=== PATIENT | female | born 1985 | race Caucasian/White ===

== ENCOUNTER 2017-04-25 16:53 | Emergency (ER) | payer MEDICAID ==
[~2017-04-25 16:53] MED LIST: ESTR2TAB PO; FLUT50SP EACH NARE; LORA-361 PO; MONT10TA4 PO
[2017-04-25 16:55] VITALS: BP 127/74; PULSE 90; RESP 14; TEMP 98.2; O2SAT 100
[2017-04-25] MEDS ORDERED: zyrtec (17:06)
[2017-04-25] MEDS ORDERED: SODIUM CHLORIDE 0.9% FLUSH 10 ML FLUSH IV FLUSH PRN (17:15)
--- NOTE | 2017-04-25 17:16 | PD ---
HPI Chief Complaint: Dizziness Time Seen by Provider: 17:07 Travel History International Travel<30 days: No Contact w/Intl Traveler<30days: No Traveled to known affect area: No History of Present Illness HPI 31-year-old female here for evaluation of lightheadedness and dizziness. The patient reports that she has had these symptoms for the last couple of days. Symptoms are worse with movements, going from supine to sitting/standing, better with rest. Just believe she may have a right ear infection as she has some fullness in the ear. She tried taking Sudafed without relief of symptoms. She is unsure if she has had any fevers. No paresthesias or motor deficits. No urinary symptoms. She has been using Q-tips to clean her ears. [facility] Past Medical History Autoimmune Disease: No Blood Disorders: No Anxiety: Yes Depression: Yes Cancer: No Cardiovascular Problems: No Diminished Hearing: No Endocrine: No Gastrointestinal Disorders: Yes (hiatal hernia repair) GERD: Yes Genitourinary: Yes Hiatal Hernia: Yes Immune Disorder: No Implanted Vascular Access Dvce: No Musculoskeletal: No Neurologic: No Psychiatric: Yes Reproductive: Yes (OVARIAN CYSTS,PID) Respiratory: No Immunizations Current: Yes Ulcer: Yes PNEUMOCCOCAL Vaccine (Year): 1 : 2 Para: 1 : 1 Past Surgical History Abdominal Surgery: Yes (hiatal hernia) Appendectomy: Yes Cardiac Surgery: No Section: Yes Ear Surgery: Yes (rt tympanic membrane repair) Endocrine Surgery: No Eye Surgery: Yes (TUMOR REMOVED FROM LEFT EYE) Genitourinary Surgery: No Gynecologic Surgery: Yes (LAPROSCOPY) Hysterectomy: Yes (2013) Neurologic Surgery: No Oral Surgery: No Thoracic Surgery: No Other Surgery: Yes (appy, c section) Social History Alcohol Use: No Tobacco Use: Yes (1 PPD) 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 Reported Meds & Prescriptions Reported Meds & Active Scripts Active Claritin (Loratadine) 10 Mg Tab 10 Mg PO DAILY Fluticasone Nasal [place] 50 Mcg/Act Naspr 50 Mcg EACH NARE BID 50 mcg/spray Estradiol 2 Mg Tab 2 Mg PO DAILY Reported [[facility] DAILY Review of Systems Except as stated in HPI: all other systems reviewed are Neg Physical Exam Narrative GENERAL: Well-developed, well-nourished, comfortable, no apparent distress. SKIN: Focused skin assessment warm/dry. HEAD: Atraumatic. Normocephalic. EYES: Pupils equal, round, 4 mm, reactive to light. EOMI. No nystagmus. No scleral icterus. No injection or drainage. ENT: Mucous membranes pink and moist. Right tympanic membrane with small med/ superior perforation, no erythema, no bulging, no purulence. Left tympanic membrane is normal. Bilateral external auditory canals are normal. NECK: Trachea midline. No JVD. CARDIOVASCULAR: Regular rate and rhythm. Distal pulses brisk and equal bilaterally. RESPIRATORY: No accessory muscle use. Clear to auscultation. Breath sounds equal bilaterally. MUSCULOSKELETAL: No obvious deformities. No clubbing. No cyanosis. No edema. NEUROLOGICAL: Awake and alert. No obvious cranial nerve deficits. Motor grossly within normal limits. Normal speech. PSYCHIATRIC: Appropriate mood and affect; insight and judgment normal. Data Data Last Documented VS Vital Signs Date Time Temp Pulse Resp B/P (MAP) Pulse Ox O2 Delivery O2 Flow Rate FiO2 04/25/17 16:55 98.2 90 14 127/74 (91) 100 Orders Orders Complete Blood Count With Diff (04/25/17 17:13) Comprehensive Metabolic Panel (04/25/17 17:13) Urinalysis - C+S If Indicated (04/25/17 17:13) Iv Access Insert/Monitor (04/25/17 17:13) Ecg Monitoring (04/25/17 17:13) Oximetry (04/25/17 17:13) Sodium Chloride 0.9% Flush (Ns Flush) (04/25/17 17:15) Ed Urine Pregnancytest Poc (04/25/17 17:13) Labs Laboratory Tests Test 04/25/17 17:30 White Blood Count 6.7 TH/MM3 Red Blood Count 4.19 MIL/MM3 Hemoglobin 13.5 GM/DL Hematocrit 37.2 % Mean Corpuscular Volume 88.8 FL Mean Corpuscular Hemoglobin 32.3 PG Mean Corpuscular Hemoglobin Concent 36.4 % Red Cell Distribution Width 12.2 % Platelet Count 209 TH/MM3 Mean Platelet Volume 8.7 FL Neutrophils (%) (Auto) 58.1 % Lymphocytes (%) (Auto) 33.2 % Monocytes (%) (Auto) 6.2 % Eosinophils (%) (Auto) 1.3 % Basophils (%) (Auto) 1.2 % Neutrophils # (Auto) 3.9 TH/MM3 Lymphocytes # (Auto) 2.2 TH/MM3 Monocytes # (Auto) 0.4 TH/MM3 Eosinophils # (Auto) 0.1 TH/MM3 Basophils # (Auto) 0.1 TH/MM3 CBC Comment AUTO DIFF Urine Color YELLOW Urine Turbidity HAZY Urine pH 6.5 Urine Specific [place] 1.036 Urine Protein TRACE mg/dL Urine Glucose (UA) NEG mg/dL Urine Ketones TRACE mg/dL Urine Occult Blood NEG Urine Nitrite NEG Urine Bilirubin NEG Urine Urobilinogen LESS THAN 2.0 MG/DL Urine Leukocyte Esterase NEG Urine WBC 3 /hpf Urine Squamous Epithelial Cells 3 /hpf Urine Mucus MOD /lpf Microscopic Urinalysis Comment CULT NOT INDICATED Blood Urea Nitrogen 13 MG/DL Creatinine 0.61 MG/DL Random Glucose 89 MG/DL Total Protein 7.3 GM/DL Albumin 4.0 GM/DL Calcium Level 8.7 MG/DL Alkaline Phosphatase 65 U/L Aspartate Amino Transf (AST/SGOT) 12 U/L Alanine Aminotransferase (ALT/SGPT) 18 U/L Total Bilirubin 0.5 MG/DL Sodium Level 140 MEQ/L Potassium Level 3.7 MEQ/L Chloride Level 106 MEQ/L Carbon Dioxide Level 26.7 MEQ/L Anion Gap 7 MEQ/L Estimat Glomerular Filtration Rate 114 ML/MIN [facility] Medical Decision Making Medical Screen Exam Complete: Yes Emergency Medical Condition: Yes Differential Diagnosis Ruptured tympanic membrane, otitis media, vertigo, metabolic abnormality, anemia , UTI Narrative Course Vital signs show heart rate 90, blood pressure 127/74, pulse ox 100% on room air , oral temp of 98.2F. CBC: WBC 6.7, hemoglobin 13.5, hematocrit 37.2, platelets 209. CMP is unremarkable. UA is not suggestive of UTI. Patient has a small perforation in her right tympanic membrane as well as symptoms of benign positional vertigo. Patient reports similar symptoms 2 months ago and her primary care physician started her on Zyrtec, Claritin, and Sudafed with resolution of symptoms. She was also referred to an ENT at that time, however she did not make an appointment. Patient also reports that she had a ruptured tympanic membrane on the right as a child that was surgically repaired. Since that time she has not had the best hearing, and does not report any new hearing changes at this time. At this point I believe she is stable for discharge home with ofloxacin eardrops, meclizine for dizziness, and primary care physician/ENT follow-up this week. She informed on when to return to the emergency department. She verbalizes understanding and agreement with plan. Diagnosis Primary Impression: Ruptured tympanic membrane Qualified Codes: H72.91 - Unspecified perforation of tympanic membrane, right ear Additional Impression: Vertigo Referrals: Jose Mora MD 3 days ENT Primary Care Physician 3 days Additional Instructions: Follow-up with your primary care physician this week. Follow-up with ENT Dr. Mora or an ENT of your choice this week. Return to the emergency department for worsening symptoms or any other concerns. Scripts Meclizine (Meclizine) 25 Mg Tab 25 MG PO BID Y for VERTIGO, #12 TAB 0 Refills Prov: Clifton aTylor MD 04/25/17 Ofloxacin Otic Drops (Ofloxacin Otic Drops) 0.3 % Drops 2 DROP RIGHT EAR BID for Infection, #1 BOTTLE 0 Refills Prov: Clifton Taylor MD 04/25/17 Disposition: 01 DISCHARGE HOME Condition: Stable Clifton Taylor MD Apr 25, 2017 17:16
[2017-04-25 17:49] LABS: BLOOD, URINE NEG (NEG); COMMENT (UR) CULT NOT INDICATED; CULTURE IF INDICATED CULT NOT INDICATED; GLUCOSE,URINE NEG (NEG); KETONE, URINE TRACE mg/dL (NEG); MUCUS URINE MOD /lpf (OCC); NITRITE,URINE NEG (NEG); PH, URINE 6.5 (5.0-8.5); SQUAMOUS EPITHELIAL CELL URINE 3 /hpf (0-5); URINE COLOR YELLOW (YELLW/STRAW)
[2017-04-25 17:59] LABS: ALT (GPT) 18 U/L (10-53); ANION GAP 7 MEQ/L (5-15); AST (GOT) 12 U/L (15-37); BICARBONATE 26.7 MEQ/L (21.0-32.0); BLOOD UREA NITROGEN 13 MG/DL (7-18); CHLORIDE 106 MEQ/L (98-107); GLOMERULAR FILTRATION RATE 114 ML/MIN (>89); POTASSIUM 3.7 MEQ/L (3.5-5.1); SODIUM (NA) 140 MEQ/L (136-145)
[2017-04-25 18:02] LABS: ALKALINE PHOSPHATASE 65 U/L (45-117); TOTAL BILIRUBIN ADULT 0.5 MG/DL (0.2-1.0)
[2017-04-25 18:07] LABS: AUTOMATED NEUTROPHIL # 3.9 TH/MM3 (1.8-7.7); BASOPHIL # 0.1 TH/MM3 (0-0.2); BASOPHIL % 1.2 % (0.0-2.0); EOSINOPHIL # 0.1 TH/MM3 (0-0.4); EOSINOPHIL % 1.3 % (0.0-4.0); HEMATOCRIT 37.2 % (35.0-46.0); LYMPH % 33.2 % (9.0-44.0); LYMPHOCYTE # 2.2 TH/MM3 (1.0-4.8); MEAN CELL VOLUME 88.8 FL (80.0-100.0); MEAN CORPUSCULAR HEMOGLOBIN 32.3 PG (27.0-34.0); MONO % 6.2 % (0.0-8.0); NEUT % 58.1 % (16.0-70.0); PLATELET COUNT 209 TH/MM3 (150-450); RED BLOOD COUNT 4.19 MIL/MM3 (4.00-5.30); RED CELL DISTRIBUTION WIDTH 12.2 % (11.6-17.2); WHITE BLOOD COUNT 6.7 TH/MM3 (4.0-11.0)
[2017-04-25 18:21] LABS: MEAN CORPUSCULAR HGB CONC 36.4 % (32.0-36.0)
[2017-04-25 18:22] LABS: HEMO FLAGS AUTO DIFF
[2017-04-25] MEDS ORDERED: MECL-62 PO (18:46)
[2017-04-25] MEDS ORDERED: OFLO0.3D9 RIGHT EAR (18:46)
[2017-04-25 19:32] LABS: EOSINOPHILS 1 % (0-4); METAMYELOCYTES 1 % (0-1); NEUTROPHIL # MANUAL DIFF 3.8 TH/MM3 (1.8-7.7); PLATELET ESTIMATE SMEAR NORMAL (NORMAL); PLATELET MORPHOLOGY NORMAL (NORMAL); POLYS (SEG NEUTROPHILS) 56 % (16-70); SCAN/DIFF FINAL DIFF MANUAL; WBC DIFF SAMPLE 100
[2017-04-26] MEDS ORDERED: CETI10 PO (11:31)
== END 2017-04-25 19:13 | disposition home or self-care (01) ==
LOC: NEPD 16:53
DX: H72.91 Unspecified perforation of tympanic membrane, right ear (principal); R42 Dizziness and giddiness; F41.9 Anxiety disorder, unspecified; F32.9 Major depressive disorder, single episode, unspecified; K21.9 Gastro-esophageal reflux disease without esophagitis; F17.200 Nicotine dependence, unspecified, uncomplicated; Z79.899 Other long term (current) drug therapy
CPT/HCPCS: 80053; 81001; 84703; 85007; 85027; 99283